=== PATIENT | male | born 1975 | race Caucasian/White ===

== ENCOUNTER 2020-03-10 16:27 | Inpatient (IN) | payer OTHER ==
[~2020-03-10] VITALS: Ht 172.7 cm; Wt 88.3 kg
[~2020-03-10 16:27] MED LIST: ALPR0.5T6 PO; LISI10TA2 PO; PARO20TA3 PO
[2020-03-10 17:06] LABS: BASO # 0.1 x10^3/uL (0.0-0.2); BASO % 1 % (0-3); EOS # 0.3 x10^3/uL (0.0-0.7); EOS % 3 % (0-3); HEMOGLOBIN 13.4 g/dL (13.0-17.5); LYMPH # 1.6 x10^3/uL (1.0-4.8); LYMPH % 14 % (24-48); MEAN CORPUSCULAR HEMOGLOBIN 32 pg (25-35); MEAN CORPUSCULAR HGB CONC 34 g/dL (31-37); MEAN CORPUSCULAR VOLUME 92 fL (79-100); MONO # 0.8 x10^3/uL (0.0-1.1); MONO % 7 % (0-9); NEUT # 8.5 x10^3/uL (1.8-7.7); NEUT % 75 % (31-73); PLATELET COUNT 325 x10^3/uL (140-400); RED BLOOD COUNT 4.22 x10^6/uL (4.30-5.70); RED CELL DISTRIBUTION WIDTH 13.3 % (11.5-14.5); WHITE BLOOD COUNT 11.3 x10^3/uL (4.0-11.0)
--- NOTE | 2020-03-10 17:13 | PHYS DOC ---
Past Medical History Past Medical History: Anxiety, Depression, Hypertension (ROBERTO CHAVEZ APRN) Past Surgical History: Other Additional Past Surgical Histo: wisdom teeth extraction (ROBERTO CHAVEZ APRN) Smoking Status: Current Every Day Smoker Alcohol Use: Heavy Drug Use: None (ROBERTO CHAVEZ APRN) General Adult EDM: Chief Complaint: SHORTNESS OF BREATH HPI: HPI: Patient is a 44 year old male who presents to the emergency department with complaints of shortness of breath, dry cough, fatigue, and labored breathing th at began yesterday. He denies any fever, abdominal pain, nausea, vomiting, diarrhea, chest pain, palpitations, sore throat, or headache. He denies any known exposure to COVID-19, however patient reports that there have been people who have tested positive for COVID where he works. Patient states that he always wears a mask and gloves while he is at work. He states that his chest hurts with coughing only. Patient reports pain in his upper back that is sharp and he currently rates that pain a 7 out of 10 on the pain scale, he denies radiation of the pain. He denies any alleviating factors. (ROBERTO CHAVEZ APRN) Review of Systems: Review of Systems: Constitutional: Denies fever or chills, reports fatigue. [] Eyes: Denies change in visual acuity. [] HENT: Denies nasal congestion or sore throat. [] Respiratory: See HPI Cardiovascular: Denies chest pain or edema. [] GI: Denies abdominal pain, nausea, vomiting, or diarrhea. [] Musculoskeletal: Denies joint pain; see HPI Integument: Denies rash. [] Neurologic: Denies headache, focal weakness or sensory changes. [] Lymphatic: Denies swollen glands. [] Psychiatric: Denies depression or anxiety. [] (ROBERTO CHAVEZ APRN) Heart Score: Risk Factors: Risk Factors: DM, Current or recent (<one month) smoker, HTN, HLP, family history of CAD, obesity. Risk Scores: Score 0 - 3: 2.5% MACE over next 6 weeks - Discharge Home Score 4 - 6: 20.3% MACE over next 6 weeks - Admit for Clinical Observation Score 7 - 10: 72.7% MACE over next 6 weeks - Early Invasive Strategies (ROBERTO CHAVEZ APRN) Allergies: Allergies: Allergies Coded Allergies Type Severity Reaction Last Updated Verified No Known Drug Allergies 10/10/14 No (ROBERTO CHAVEZ APRN) Physical Exam: PE: Constitutional: Well developed, well nourished, no acute distress, ill appearance. [] HENT: Normocephalic, atraumatic, bilateral external ears normal, oropharynx moist, no oral exudates, nose normal. [] Eyes: PERRLA, EOMI, conjunctiva normal, no discharge. [] Neck: Normal range of motion, no stridor. [] Cardiovascular:Heart rate regular rhythm Lungs & Thorax: Bilateral breath sounds expiratory wheezes throughout, labored breathing with abdominal retractions present, patient speaking 2-3 words at a time. Abdomen: soft, no tenderness Skin: Warm, dry, no erythema, no rash. [] Back: No tenderness Extremities: No cyanosis, no clubbing, ROM intact, no edema. [] Neurologic: Alert and oriented X 3, no focal deficits noted. [] Psychologic: Affect normal, judgement normal, mood normal. [] (ROBERTO CHAVEZ SENIOR SCIENTIST) Current Patient Data: Labs: Laboratory Tests Test 03/10/20 16:40 White Blood Count 11.3 x10^3/uL (4.0-11.0) H Red Blood Count 4.22 x10^6/uL (4.30-5.70) L Hemoglobin 13.4 g/dL (13.0-17.5) Hematocrit 39.0 % (39.0-53.0) Mean Corpuscular Volume 92 fL (79-100) Mean Corpuscular Hemoglobin 32 pg (25-35) Mean Corpuscular Hemoglobin Concent 34 g/dL (31-37) Red Cell Distribution Width 13.3 % (11.5-14.5) Platelet Count 325 x10^3/uL (140-400) Neutrophils (%) (Auto) 75 % (31-73) H Lymphocytes (%) (Auto) 14 % (24-48) L Monocytes (%) (Auto) 7 % (0-9) Eosinophils (%) (Auto) 3 % (0-3) Basophils (%) (Auto) 1 % (0-3) Neutrophils # (Auto) 8.5 x10^3/uL (1.8-7.7) H Lymphocytes # (Auto) 1.6 x10^3/uL (1.0-4.8) Monocytes # (Auto) 0.8 x10^3/uL (0.0-1.1) Eosinophils # (Auto) 0.3 x10^3/uL (0.0-0.7) Basophils # (Auto) 0.1 x10^3/uL (0.0-0.2) Laboratory Tests 03/10/20 16:40 Vital Signs: Vital Signs Date Time Temp Pulse Resp B/P (MAP) Pulse Ox O2 Delivery O2 Flow Rate FiO2 03/10/20 16:35 98.9 104 26 148/85 (106) 86 Room Air 98.9 (ROBERTO CHAVEZ APRN) EKG: EK-sinus rhythm, rate 93, reciprocal changes in leads II and II, no STEMI [] (ROBERTO CHAVEZ APRN) Radiology/Procedures: Radiology/Procedures: PROCEDURE: CHEST AP ONLY EXAM: Chest, single view. HISTORY: Nausea and vomiting. COMPARISON: None. FINDINGS: A frontal view of the chest is obtained. There is no infiltrate, pleural effusion or pneumothorax. The heart is normal in size. IMPRESSION: No acute pulmonary finding. Electronically signed by: Elva Price MD (03/10/2020 5:31 PM) [facility] PROCEDURE: CT ANGIOGRAPHY CHEST Examination: CT angiography chest HISTORY: History of shortness of breath, elevated d-dimer COMPARISON: None available Technique: Axial CT angiographic images were performed with IV contrast. Coronal and sagittal 3-D MIP reformats are performed Exposure: One or more of the following individualized dose reduction techniques were utilized for this examination: 1. Automated exposure control 2. Adjustment of the mA and/or kV according to patient size 3. Use of iterative reconstruction technique FINDINGS: The visualized thyroid gland grossly appears unremarkable. The central airways are patent. No evidence for significant mediastinal lymphadenopathy is identified. The caliber of the aorta grossly appears unremarkable. There is no evidence of filling defect identified in the main pulmonary arterial trunk and right and left main pulmonary arteries and the visualized lobar, segmental branches of the pulmonary arteries. Patchy groundglass airspace opacities identified in the right upper lobe, right middle lobe and left lower lobe of the lung. Mild prominent bilateral hilar lymph nodes the largest measuring 1.5 cm. The visualized liver, spleen, adrenals grossly appears unremarkable Mild degenerative changes thoracic spine IMPRESSION: 1. No evidence of pulmonary embolism. 2. Patchy groundglass airspace opacities identified in the right upper lobe, right middle lobe, left lower lobe of the lung could be atypical or viral pneumonia or atelectasis or infiltrates. Correlate clinically and with lab values. 3. Mild bilateral hilar lymphadenopathy. Electronically signed by: Shane Zimmerman MD (03/10/2020 6:30 PM) [id number] [] (ROBERTO CHAVEZ SENIOR SCIENTIST) Course & Med Decision Making: Course & Med Decision Making Pertinent Labs and Imaging studies reviewed. (See chart for details) 1709-spoke with Dr. Uribe about the reciprocal changes on patient's EKG. 1752-spoke with Dr. Mir who is the admitting physician, and care was assumed following discussion of patient. Will admit pt to CVC for PUI and hypoxia. Pt was given 125 mg of solumedrol and 2 puffs of Albuterol MDI in the ER and reports feeling better after these medications. 1856 Patient's vital signs stable. Patient remains afebrile, appears nontoxic, respirations even and unlabored, retractions after . Patient will be admitted to the CVC floor. Patient's case and plan of care also discussed with Dr. Melchor [] COVID-19 CRITERIA: The patient was evaluated during the global COVID-19 pandemic, and that diagnosis was suspected/considered upon their initial presentation. Their evaluation, treatment and testing was consistent with current guidelines for patients who present with complaints or symptoms that may be related to COVID-19. (ROBERTO CHAVEZ SENIOR SCIENTIST) Course & Med Decision Making I have reviewed the PA/BUTCHER SCULLION's note and Plan of Care. I was available for consultation as needed during the patient's visit in the emergency department. I agree with the clinical impression, plans and disposition. (MANUELA MELCHOR MD) Dragon Disclaimer: Dragon Disclaimer: This electronic medical record was generated, in whole or in part, using a voice recognition dictation system. (ROBERTO CHAVEZ APRN) Departure Departure Impression: Primary Impression: Person under investigation for COVID-19 Additional Impression: Hypoxia Disposition: ADMITTED INPATIENT Admitting Physician: MARIA LUISA Navas) (ROBERTO CHAVEZ APRN) Condition: STABLE Referrals: JOSE DOLAN (PCP) Justicifation of Admission Dx: Justifications for Admission: Justification of Admission Dx: Yes Comminuty Aquired Pneumonia: Hypoxemia (ROBERTO CHAVEZ APRN) COVID-19 Assessment: COVID-19 Patient Risks: Age 65 or older: No Sign of co-morbidity: No Exp to person + for COVID: No Exp to PUI: No Travel from affected area: No Lower respiratory symptoms: Yes Fever: No Other: No (ROBERTO CHAVEZ APRN) PPE Use: Full PPE with N95 mask or PAPR: Yes (ROBERTO CHAVEZ APRN) ROBERTO CHAVEZ APRN Mar 10, 2020 17:13 MANUELA MELCHOR MD Mar 10, 2020 20:26
[2020-03-10 17:18] LABS: CALCIUM 8.7 mg/dL (8.5-10.1); CREATININE 1.1 mg/dL (0.7-1.3); GFR 73.4; POTASSIUM 3.8 mmol/L (3.5-5.1)
--- NOTE | 2020-03-10 17:34 | RAD ---
EXAM: Chest, single view. HISTORY: Nausea and vomiting. COMPARISON: None. FINDINGS: A frontal view of the chest is obtained. There is no infiltrate, pleural effusion or pneumothorax. The heart is normal in size. IMPRESSION: No acute pulmonary finding. Electronically signed by: Elva Price MD (03/10/2020 5:31 PM) [facility]
[2020-03-10 17:45] LABS: ALBUMIN 3.7 g/dL (3.4-5.0); ALBUMIN/GLOBULIN RATIO 0.9 (1.0-1.7); C-REACTIVE PROTEIN 17.4 mg/L (0-3.3); MAGNESIUM 1.7 mg/dL (1.8-2.4); TOTAL BILIRUBIN 0.5 mg/dL (0.2-1.0); TOTAL PROTEIN 7.6 g/dL (6.4-8.2)
[2020-03-10 17:53] LABS: BILIRUBIN,URINE NEGATIVE (NEG); CLARITY,URINE CLEAR; COLOR,URINE YELLOW; NITRITE,URINE NEGATIVE (NEG); PROTEIN,URINE NEGATIVE (NEG-TRACE); UROBILINOGEN,URINE 0.2 mg/dL (0.2 mg/dL)
[2020-03-10] MEDS ORDERED: methylPREDNISolone SOD SUCC PF 125 MG/2 ML VIAL. IV ONE (18:00)
[2020-03-10] MEDS ORDERED: ALBUTEROL SULFATE 8GM INHALER. INH PRN (18:00)
[2020-03-10 18:03] LABS: BACTERIA,URINE 0 /HPF (0-FEW); RBC,URINE 0 /HPF (0-2); WBC,URINE 0 /HPF (0-4)
[2020-03-10] MEDS ORDERED: IOHEXOL 350 MG/ML 100 ML VIAL. IV ONE ×2 (18:15→18:30)
[2020-03-10] MEDS ORDERED: CONTRAST GIVEN. MC PRN (18:30)
--- NOTE | 2020-03-10 18:33 | RAD ---
Examination: CT angiography chest HISTORY: History of shortness of breath, elevated d-dimer COMPARISON: None available Technique: Axial CT angiographic images were performed with IV contrast. Coronal and sagittal 3-D MIP reformats are performed Exposure: One or more of the following individualized dose reduction techniques were utilized for this examination: 1. Automated exposure control 2. Adjustment of the mA and/or kV according to patient size 3. Use of iterative reconstruction technique FINDINGS: The visualized thyroid gland grossly appears unremarkable. The central airways are patent. No evidence for significant mediastinal lymphadenopathy is identified. The caliber of the aorta grossly appears unremarkable. There is no evidence of filling defect identified in the main pulmonary arterial trunk and right and left main pulmonary arteries and the visualized lobar, segmental branches of the pulmonary arteries. Patchy groundglass airspace opacities identified in the right upper lobe, right middle lobe and left lower lobe of the lung. Mild prominent bilateral hilar lymph nodes the largest measuring 1.5 cm. The visualized liver, spleen, adrenals grossly appears unremarkable Mild degenerative changes thoracic spine IMPRESSION: 1. No evidence of pulmonary embolism. 2. Patchy groundglass airspace opacities identified in the right upper lobe, right middle lobe, left lower lobe of the lung could be atypical or viral pneumonia or atelectasis or infiltrates. Correlate clinically and with lab values. 3. Mild bilateral hilar lymphadenopathy. Electronically signed by: Shane Zimmerman MD (03/10/2020 6:30 PM) [id number]
[2020-03-10] MEDS ORDERED: diphenhydrAMINE 50 MG/ML VIAL IVP PRN (18:45)
[2020-03-10] MEDS ORDERED: ONDANSETRON PF 4 MG/2 ML VIAL. IV PRN (18:45)
[2020-03-10] MEDS ORDERED: guaiFENesin ORAL 200 MG/10 ML LIQUID. PO PRN (18:45)
[2020-03-10] MEDS ORDERED: PIPERACILLIN/TAZOBACTAM 3.375 GM in IV NORMAL SALINE 50ML 50 ML IV ONE (18:45)
[2020-03-10] MEDS ORDERED: ALBUTEROL SULFATE 2.5 MG/3 ML NEBU. NEB PRN (18:45)
[2020-03-10] MEDS ORDERED: cloNIDine HCL 0.1 MG TABLET PO PRN (18:45)
[2020-03-10] MEDS ORDERED: ACETAMINOPHEN 325 MG TABLET. PO PRN (18:45)
[2020-03-10] MEDS ORDERED: ENOXAPARIN 40 MG/0.4 ML SYRINGE. SQ SCH (19:00)
[2020-03-10] MEDS: NICOTINE 21MG PATCH. TD SCH (20:42)
[2020-03-10] MEDS: THIAMINE INJ 200 MG in IV DEXTROSE 5% 50 ML IV SCH (20:43)
[2020-03-10] MEDS: ASCORBIC ACID 500 MG TABLET PO SCH (20:43)
[2020-03-10] MEDS: ZINC SULFATE 220 MG CAPSULE. PO SCH (20:43)
[2020-03-10 21:38] VITALS: BP 128/67
[2020-03-10] MEDS ORDERED: MAGNESIUM SULFATE 2GM 50 ML IV ONE (22:00)
--- NOTE | 2020-03-10 22:00 | PDOC1 ---
History and Physical Date of Admission Date of Admission 03/10/2020 Identification/Chief Complaint Chief Complaint I cannot breathe Source Source: Chart review, Patient History of Present Illness History of Present Illness Patient is a 44-year-old gentleman with no significant past medical history except for essential hypertension and tobacco abuse who was in his usual state of health until apparently yesterday he started feeling quite short of breath. He has been having dry cough and fatigue for about 5 days prior to his visit to the emergency department he denied any fever no sick contacts he denied any sneezing upper respiratory tract infection symptoms no abdominal pain no nausea vomiting no change in his sense of smell or taste. The patient was unable to climb a flight of stairs at home with about 5 steps and due to the progressive nature of his symptoms he decided to consult the emergency department. He certainly looks quite labored and is able to finish sentences fortunately. He is requiring 3 L of oxygen and given the laboratory findings and chest imaging patient is highly suspicious for coronavirus infection. We have been asked to admit the patient for further evaluation and treatment. Plan of care has been explained in detail all of his concerns were addressed to the best of my abilities. Patient denies abdominal pain nausea vomiting no urinary symptoms no CVA tenderness elicited on physical exam no peripheral edema was noted. Patient has not taking anything [id number] to alleviate his symptoms. Past Medical History Cardiovascular: HTN Psych: Anxiety, Depression Past Surgical History Past Surgical History: No pertinent history Family History Family History: No Significant Social History Smoke: # pack years (10) ALCOHOL: occassional Drugs: None Current Problem List Problem List Problems Medical Problems: (1) Hypoxia Status: Acute (2) Person under investigation for COVID-19 Status: Acute Current Medications Current Medications Current Medications Medications (Trade) Dose Ordered Sig/Prabhjot Start Time Stop Time Status Last Admin Dose Admin Acetaminophen (Tylenol) 650 mg PRN Q4HRS PRN 03/10/20 18:45 Albuterol Sulfate (Ventolin Hfa) 2 puff PRN Q3HRS PRN 03/10/20 18:00 Albuterol Sulfate (Ventolin Neb Soln) 2.5 mg PRN Q4HRS PRN 03/10/20 18:45 Ascorbic Acid (Vitamin C) 500 mg Q6HRS 03/10/20 19:15 03/10/20 20:43 500 MG Atorvastatin Calcium (Lipitor) 20 mg QHS 03/10/20 21:00 Azithromycin (Zithromax) 500 mg DAILY 03/11/20 09:00 03/13/20 09:01 Clonidine HCl (Catapres) 0.1 mg PRN Q6HRS PRN 03/10/20 18:45 Diphenhydramine HCl (Benadryl) 25 mg PRN Q4HRS PRN 03/10/20 18:45 Enoxaparin Sodium (Lovenox 40mg Syringe) 40 mg Q12H 03/10/20 20:00 Famotidine (Pepcid) 20 mg BID 03/10/20 21:00 Guaifenesin (Robitussin) 200 mg PRN Q4HRS PRN 03/10/20 18:45 Info (CONTRAST GIVEN -- Rx MONITORING) 1 each PRN DAILY PRN 03/10/20 18:30 03/12/20 18:29 Iohexol (Omnipaque 350 Mg/ml) 100 ml 1X ONCE 03/10/20 18:30 03/10/20 18:31 DC 03/10/20 18:20 100 ML Lorazepam (Ativan) 0.5 mg PRN Q4HRS PRN 03/10/20 18:45 Methylprednisolone Sodium Succinate (SOLU-Medrol 40MG VIAL) 40 mg Q12HR 03/10/20 20:00 Methylprednisolone Sodium Succinate (SOLU-Medrol 125MG VIAL) 125 mg 1X ONCE 03/10/20 18:00 03/10/20 18:01 DC 03/10/20 18:09 125 MG Nicotine (Nicoderm Cq 21mg) 1 patch DAILY 03/10/20 19:15 03/10/20 20:42 1 PATCH Ondansetron HCl (Zofran) 4 mg PRN Q4HRS PRN 03/10/20 18:45 Piperacillin Sod/ Tazobactam Sod 3.375 gm/Sodium Chloride 50 ml @ 100 mls/hr 1X ONCE 03/10/20 18:45 03/10/20 19:15 DC 03/10/20 20:12 100 MLS/HR Thiamine HCl 200 mg/Dextrose 52 ml @ 102 mls/hr Q12HR 03/10/20 21:00 03/10/20 20:43 102 MLS/HR Vitamin D (Vitamin D3) 1,000 unit BID 03/10/20 21:00 Zinc Sulfate (Orazinc) 220 mg DAILY 03/10/20 19:15 03/10/20 20:43 220 MG Zolpidem Tartrate (Ambien) 5 mg PRN QHS PRN 03/10/20 18:45 Allergies Allergies Allergies Coded Allergies Type Severity Reaction Last Updated Verified No Known Drug Allergies 10/10/14 No ROS Review of System CONSTITUTIONAL: No fever or chills EYES: No recent changes SKIN: No rash or itching CARDIOVASCULAR: No chest pain, syncope, palpitations, or edema RESPIRATORY: No SOB or cough GASTROINTESTINAL: No nausea, vomiting or abdominal pain NEUROLOGICAL: No headaches or weakness ENDOCRINE: No cold or heat intolerance GENITOURINARY: No urgency or frequency of urination MUSCULOSKELETAL: No back pain or joint pain LYMPHATICS: No enlarged lymph nodes PSYCHIATRIC: No anxiety or depression Physical Exam Physical Exam GEN.: No apparent distress. Alert and oriented. HEENT: Head is normocephalic, atraumatic NECK: Supple. LUNGS: Clear to auscultation. HEART: RRR, S1, S2 present. Peripheral pulses intact ABDOMEN: Soft, nontender. Positive bowel sounds. EXTREMITIES: Without any cyanosis. NEUROLOGIC: Normal speech, normal tone PSYCHIATRIC: Normal affect, normal mood. SKIN: No ulcerations Vitals Vitals Vital Signs Date Time Temp Pulse Resp B/P (MAP) Pulse Ox O2 Delivery O2 Flow Rate FiO2 03/10/20 20:21 84 22 148/76 (100) 92 Nasal Cannula 2.0 03/10/20 16:35 98.9 98.9 Labs Labs Laboratory Tests Test 03/10/20 16:40 03/10/20 17:40 White Blood Count 11.3 x10^3/uL (4.0-11.0) Red Blood Count 4.22 x10^6/uL (4.30-5.70) Hemoglobin 13.4 g/dL (13.0-17.5) Hematocrit 39.0 % (39.0-53.0) Mean Corpuscular Volume 92 fL (79-100) Mean Corpuscular Hemoglobin 32 pg (25-35) Mean Corpuscular Hemoglobin Concent 34 g/dL (31-37) Red Cell Distribution Width 13.3 % (11.5-14.5) Platelet Count 325 x10^3/uL (140-400) Neutrophils (%) (Auto) 75 % (31-73) Lymphocytes (%) (Auto) 14 % (24-48) Monocytes (%) (Auto) 7 % (0-9) Eosinophils (%) (Auto) 3 % (0-3) Basophils (%) (Auto) 1 % (0-3) Neutrophils # (Auto) 8.5 x10^3/uL (1.8-7.7) Lymphocytes # (Auto) 1.6 x10^3/uL (1.0-4.8) Monocytes # (Auto) 0.8 x10^3/uL (0.0-1.1) Eosinophils # (Auto) 0.3 x10^3/uL (0.0-0.7) Basophils # (Auto) 0.1 x10^3/uL (0.0-0.2) D-Dimer (Alycia) 0.73 ug/mlFEU (0.00-0.50) Sodium Level 134 mmol/L (136-145) Potassium Level 3.8 mmol/L (3.5-5.1) Chloride Level 97 mmol/L (98-107) Carbon Dioxide Level 26 mmol/L (21-32) Anion Gap 11 (6-14) Blood Urea Nitrogen 7 mg/dL (8-26) Creatinine 1.1 mg/dL (0.7-1.3) Estimated GFR (Cockcroft-Gault) 73.4 BUN/Creatinine Ratio 6 (6-20) Glucose Level 122 mg/dL (70-99) Calcium Level 8.7 mg/dL (8.5-10.1) Magnesium Level 1.7 mg/dL (1.8-2.4) Ferritin 240 ng/mL (26-388) Total Bilirubin 0.5 mg/dL (0.2-1.0) Aspartate Amino Transf (AST/SGOT) 39 U/L (15-37) Alanine Aminotransferase (ALT/SGPT) 102 U/L (16-63) Alkaline Phosphatase 104 U/L (46-116) Creatine Kinase 219 U/L (39-308) C-Reactive Protein, Quantitative 17.4 mg/L (0-3.3) Total Protein 7.6 g/dL (6.4-8.2) Albumin 3.7 g/dL (3.4-5.0) Albumin/Globulin Ratio 0.9 (1.0-1.7) Lipase 55 U/L (73-393) Urine Collection Type Unknown Urine Color Yellow Urine Clarity Clear Urine pH 6.0 (<5.0-8.0) Urine Specific Pierpont <=1.005 (1.000-1.030) Urine Protein Negative mg/dL (NEG-TRACE) Urine Glucose (UA) Negative mg/dL (NEG) Urine Ketones (Stick) Negative mg/dL (NEG) Urine Blood Negative (NEG) Urine Nitrite Negative (NEG) Urine Bilirubin Negative (NEG) Urine Urobilinogen Dipstick 0.2 mg/dL (0.2 mg/dL) Urine Leukocyte Esterase Negative (NEG) Urine RBC 0 /HPF (0-2) Urine WBC 0 /HPF (0-4) Urine Bacteria 0 /HPF (0-FEW) Laboratory Tests Test 03/10/20 16:40 03/10/20 17:40 White Blood Count 11.3 x10^3/uL (4.0-11.0) Red Blood Count 4.22 x10^6/uL (4.30-5.70) Hemoglobin 13.4 g/dL (13.0-17.5) Hematocrit 39.0 % (39.0-53.0) Mean Corpuscular Volume 92 fL (79-100) Mean Corpuscular Hemoglobin 32 pg (25-35) Mean Corpuscular Hemoglobin Concent 34 g/dL (31-37) Red Cell Distribution Width 13.3 % (11.5-14.5) Platelet Count 325 x10^3/uL (140-400) Neutrophils (%) (Auto) 75 % (31-73) Lymphocytes (%) (Auto) 14 % (24-48) Monocytes (%) (Auto) 7 % (0-9) Eosinophils (%) (Auto) 3 % (0-3) Basophils (%) (Auto) 1 % (0-3) Neutrophils # (Auto) 8.5 x10^3/uL (1.8-7.7) Lymphocytes # (Auto) 1.6 x10^3/uL (1.0-4.8) Monocytes # (Auto) 0.8 x10^3/uL (0.0-1.1) Eosinophils # (Auto) 0.3 x10^3/uL (0.0-0.7) Basophils # (Auto) 0.1 x10^3/uL (0.0-0.2) D-Dimer (Alycia) 0.73 ug/mlFEU (0.00-0.50) Sodium Level 134 mmol/L (136-145) Potassium Level 3.8 mmol/L (3.5-5.1) Chloride Level 97 mmol/L (98-107) Carbon Dioxide Level 26 mmol/L (21-32) Anion Gap 11 (6-14) Blood Urea Nitrogen 7 mg/dL (8-26) Creatinine 1.1 mg/dL (0.7-1.3) Estimated GFR (Cockcroft-Gault) 73.4 BUN/Creatinine Ratio 6 (6-20) Glucose Level 122 mg/dL (70-99) Calcium Level 8.7 mg/dL (8.5-10.1) Magnesium Level 1.7 mg/dL (1.8-2.4) Ferritin 240 ng/mL (26-388) Total Bilirubin 0.5 mg/dL (0.2-1.0) Aspartate Amino Transf (AST/SGOT) 39 U/L (15-37) Alanine Aminotransferase (ALT/SGPT) 102 U/L (16-63) Alkaline Phosphatase 104 U/L (46-116) Creatine Kinase 219 U/L (39-308) C-Reactive Protein, Quantitative 17.4 mg/L (0-3.3) Total Protein 7.6 g/dL (6.4-8.2) Albumin 3.7 g/dL (3.4-5.0) Albumin/Globulin Ratio 0.9 (1.0-1.7) Lipase 55 U/L (73-393) Urine Collection Type Unknown Urine Color Yellow Urine Clarity Clear Urine pH 6.0 (<5.0-8.0) Urine Specific Pierpont <=1.005 (1.000-1.030) Urine Protein Negative mg/dL (NEG-TRACE) Urine Glucose (UA) Negative mg/dL (NEG) Urine Ketones (Stick) Negative mg/dL (NEG) Urine Blood Negative (NEG) Urine Nitrite Negative (NEG) Urine Bilirubin Negative (NEG) Urine Urobilinogen Dipstick 0.2 mg/dL (0.2 mg/dL) Urine Leukocyte Esterase Negative (NEG) Urine RBC 0 /HPF (0-2) Urine WBC 0 /HPF (0-4) Urine Bacteria 0 /HPF (0-FEW) VTE Prophylaxis Ordered VTE Prophylaxis Devices: No VTE Pharmacological Prophylaxi: Yes Assessment/Plan Assessment/Plan Acute hypoxemic respiratory failure Person under investigation for COVID-19 Tobacco abuse, counseling has been done COPD Essential hypertension Leukocytosis Hyponatremia Hypomagnesemia Plan; We will start math+ protocol We will try to maintain magnesium between 2 and 2.4 Respiratory support with oxygen Encourage prone position We will follow results of COVID-19 precaution DVT prophylaxis with Lovenox Further recommendations based on the clinical course RACHELLE RODRIGUEZ MD Mar 10, 2020 22:00
[2020-03-11] MEDS: CHOLECALCIFEROL (VITAMIN D3) 1,000 UNIT TABLET PO SCH ×3 (00:28→21:30)
[2020-03-11] MEDS: ATORVASTATIN CALCIUM 20 MG TABLET PO SCH ×2 (00:28→21:30)
[2020-03-11] MEDS: methylPREDNISolone SOD SUCC PF 40 MG/ML VIAL. IV SCH ×3 (00:28→21:29)
[2020-03-11] MEDS: LORazepam 0.5 MG TABLET PO PRN ×2 (00:28→17:40)
[2020-03-11] MEDS: ASCORBIC ACID 500 MG TABLET PO SCH ×4 (00:28→17:35)
[2020-03-11] MEDS: ENOXAPARIN 40 MG/0.4 ML SYRINGE. SQ SCH ×3 (00:29→21:29)
[2020-03-11] MEDS: FAMOTIDINE 20 MG TABLET. PO SCH ×3 (00:29→21:30)
[2020-03-11 03:37] VITALS: BP 162/91
[2020-03-11 07:00] VITALS: BP 145/75
[2020-03-11 07:57] LABS: BASO % 0 % (0-3); EOS % 0 % (0-3); HEMATOCRIT 40.7 % (39.0-53.0); HEMOGLOBIN 13.8 g/dL (13.0-17.5); LYMPH # 0.6 x10^3/uL (1.0-4.8); LYMPH % 15 % (24-48); MEAN CORPUSCULAR HEMOGLOBIN 32 pg (25-35); MEAN CORPUSCULAR HGB CONC 34 g/dL (31-37); MEAN CORPUSCULAR VOLUME 93 fL (79-100); MONO # 0.1 x10^3/uL (0.0-1.1); MONO % 2 % (0-9); NEUT # 3.7 x10^3/uL (1.8-7.7); NEUT % 83 % (31-73); PLATELET COUNT 325 x10^3/uL (140-400); RED BLOOD COUNT 4.37 x10^6/uL (4.30-5.70); RED CELL DISTRIBUTION WIDTH 13.7 % (11.5-14.5); WHITE BLOOD COUNT 4.4 x10^3/uL (4.0-11.0)
--- NOTE | 2020-03-11 08:01 | EKG ---
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
[2020-03-11 08:12] LABS: CALCIUM 8.8 mg/dL (8.5-10.1); CREATININE 1.1 mg/dL (0.7-1.3); GFR 73.4; POTASSIUM 4.1 mmol/L (3.5-5.1)
[2020-03-11] MEDS: NICOTINE 21MG PATCH. TD SCH (09:07)
[2020-03-11] MEDS: ZINC SULFATE 220 MG CAPSULE. PO SCH (09:08)
[2020-03-11] MEDS: AZITHROMYCIN 250 MG TABLET. PO SCH (09:08)
[2020-03-11] MEDS: THIAMINE INJ 200 MG in IV DEXTROSE 5% 50 ML IV SCH ×2 (09:09→21:30)
[2020-03-11 11:00] VITALS: BP 130/65
[2020-03-11 15:00] VITALS: BP 154/67
--- NOTE | 2020-03-11 15:40 | PDOC ---
[facility] PROGRESS NOTE Date of Service DOS: DATE: 03/11/20 TIME: 15:37 Chief Complaint Chief Complaint Acute hypoxemic respiratory failure Person under investigation for COVID-19 Tobacco abuse, counseling has been done COPD Essential hypertension Leukocytosis Hyponatremia Hypomagnesemia Plan; We will start math+ protocol We will try to maintain magnesium between 2 and 2.4 Respiratory support with oxygen Encourage prone position We will follow results of COVID-19 precaution DVT prophylaxis with Lovenox Further recommendations based on the clinical course History of Present Illness History of Present Illness 44-year-old gentleman with no significant past medical history except for essential hypertension and tobacco abuse who was in his usual state of health until apparently yesterday he started feeling quite short of breath. He has been having dry cough and fatigue for about 5 days prior to his visit to the emergency department he denied any fever no sick contacts he denied any sneezing upper respiratory tract infection symptoms no abdominal pain no nausea vomiting no change in his sense of smell or taste. The patient was unable to climb a flight of stairs at home with about 5 steps and due to the progressive nature of his symptoms he decided to consult the emergency department. He certainly looks quite labored and is able to finish sentences fortunately. He is requiring 3 L of oxygen and given the laboratory findings and chest imaging patient is highly suspicious for coronavirus infection. We have been asked to admit the patient for further evaluation and treatment. Plan of care has been explained in detail all of his concerns were addressed to the best of my abilities. 03/11/2020 No acute event events overnight. Patient continues to saturate 93% on 3 L nasal cannula. He is currently sitting prone position but does not have any accessory muscle breathing. Vitals/I&O Vitals/I&O: Vital Signs Date Time Temp Pulse Resp B/P (MAP) Pulse Ox O2 Delivery O2 Flow Rate FiO2 03/11/20 15:00 98.0 98 20 154/67 (96) 93 Nasal Cannula 3.0 98.0 Physical Exam Physical Exam: GEN: No apparent distress. Alert and oriented HEENT: Normal cephalic, atraumatic, external auditory canals are patent NECK: Supple, no JVD, no thyromegaly was noted LUNGS: Bilateral minimal wheezing and crackles HEART: RRR, S1, S2 present. Peripheral pulses intact, no obvious murmurs noted ABDOMEN: Soft, nontender. Positive bowel sounds, no organomegaly, normal bowel sounds EXTREMITIES: Without clubbing, cyanosis, or edema. Pedal pulses intact. Negative Homans sign Labs Labs: Laboratory Tests Test 03/10/20 16:40 03/10/20 17:40 03/11/20 06:39 White Blood Count 11.3 x10^3/uL (4.0-11.0) 4.4 x10^3/uL (4.0-11.0) Red Blood Count 4.22 x10^6/uL (4.30-5.70) 4.37 x10^6/uL (4.30-5.70) Hemoglobin 13.4 g/dL (13.0-17.5) 13.8 g/dL (13.0-17.5) Hematocrit 39.0 % (39.0-53.0) 40.7 % (39.0-53.0) Mean Corpuscular Volume 92 fL (79-100) 93 fL (79-100) Mean Corpuscular Hemoglobin 32 pg (25-35) 32 pg (25-35) Mean Corpuscular Hemoglobin Concent 34 g/dL (31-37) 34 g/dL (31-37) Red Cell Distribution Width 13.3 % (11.5-14.5) 13.7 % (11.5-14.5) Platelet Count 325 x10^3/uL (140-400) 325 x10^3/uL (140-400) Neutrophils (%) (Auto) 75 % (31-73) 83 % (31-73) Lymphocytes (%) (Auto) 14 % (24-48) 15 % (24-48) Monocytes (%) (Auto) 7 % (0-9) 2 % (0-9) Eosinophils (%) (Auto) 3 % (0-3) 0 % (0-3) Basophils (%) (Auto) 1 % (0-3) 0 % (0-3) Neutrophils # (Auto) 8.5 x10^3/uL (1.8-7.7) 3.7 x10^3/uL (1.8-7.7) Lymphocytes # (Auto) 1.6 x10^3/uL (1.0-4.8) 0.6 x10^3/uL (1.0-4.8) Monocytes # (Auto) 0.8 x10^3/uL (0.0-1.1) 0.1 x10^3/uL (0.0-1.1) Eosinophils # (Auto) 0.3 x10^3/uL (0.0-0.7) 0.0 x10^3/uL (0.0-0.7) Basophils # (Auto) 0.1 x10^3/uL (0.0-0.2) 0.0 x10^3/uL (0.0-0.2) D-Dimer (Alycia) 0.73 ug/mlFEU (0.00-0.50) Sodium Level 134 mmol/L (136-145) 136 mmol/L (136-145) Potassium Level 3.8 mmol/L (3.5-5.1) 4.1 mmol/L (3.5-5.1) Chloride Level 97 mmol/L (98-107) 98 mmol/L (98-107) Carbon Dioxide Level 26 mmol/L (21-32) 27 mmol/L (21-32) Anion Gap 11 (6-14) 11 (6-14) Blood Urea Nitrogen 7 mg/dL (8-26) 9 mg/dL (8-26) Creatinine 1.1 mg/dL (0.7-1.3) 1.1 mg/dL (0.7-1.3) Estimated GFR (Cockcroft-Gault) 73.4 73.4 BUN/Creatinine Ratio 6 (6-20) Glucose Level 122 mg/dL (70-99) 161 mg/dL (70-99) Calcium Level 8.7 mg/dL (8.5-10.1) 8.8 mg/dL (8.5-10.1) Magnesium Level 1.7 mg/dL (1.8-2.4) Ferritin 240 ng/mL (26-388) Total Bilirubin 0.5 mg/dL (0.2-1.0) Aspartate Amino Transf (AST/SGOT) 39 U/L (15-37) Alanine Aminotransferase (ALT/SGPT) 102 U/L (16-63) Alkaline Phosphatase 104 U/L (46-116) Creatine Kinase 219 U/L (39-308) C-Reactive Protein, Quantitative 17.4 mg/L (0-3.3) Total Protein 7.6 g/dL (6.4-8.2) Albumin 3.7 g/dL (3.4-5.0) Albumin/Globulin Ratio 0.9 (1.0-1.7) Lipase 55 U/L (73-393) Urine Collection Type Unknown Urine Color Yellow Urine Clarity Clear Urine pH 6.0 (<5.0-8.0) Urine Specific [place] <=1.005 (1.000-1.030) Urine Protein Negative mg/dL (NEG-TRACE) Urine Glucose (UA) Negative mg/dL (NEG) Urine Ketones (Stick) Negative mg/dL (NEG) Urine Blood Negative (NEG) Urine Nitrite Negative (NEG) Urine Bilirubin Negative (NEG) Urine Urobilinogen Dipstick 0.2 mg/dL (0.2 mg/dL) Urine Leukocyte Esterase Negative (NEG) Urine RBC 0 /HPF (0-2) Urine WBC 0 /HPF (0-4) Urine Bacteria 0 /HPF (0-FEW) Assessment and Plan Assessmemt and Plan Problems Medical Problems: (1) Hypoxia Status: Acute (2) Person under investigation for COVID-19 Status: Acute Comment Review of Relevant I have reviewed the following items zayda (where applicable) has been applied. Medications: Current Medications Medications (Trade) Dose Ordered Sig/Prabhjot Route PRN Reason Start Time Stop Time Status Last Admin Dose Admin Methylprednisolone Sodium Succinate (SOLU-Medrol 125MG VIAL) 125 mg 1X ONCE IV 03/10/20 18:00 03/10/20 18:01 DC 03/10/20 18:09 Albuterol Sulfate (Ventolin Hfa) 2 puff PRN Q3HRS PRN INH SHORTNESS OF BREATH 03/10/20 18:00 03/11/20 00:24 Iohexol (Omnipaque 350 Mg/ml) 100 ml 1X ONCE IV 03/10/20 18:30 03/10/20 18:31 DC 03/10/20 18:20 Acetaminophen (Tylenol) 650 mg PRN Q4HRS PRN PO TEMP OVER 100.4F OR MILD PAIN 03/10/20 18:45 03/11/20 12:42 Guaifenesin (Robitussin) 200 mg PRN Q4HRS PRN PO COUGH 03/10/20 18:45 03/11/20 00:29 Lorazepam (Ativan) 0.5 mg PRN Q4HRS PRN PO ANXIETY / AGITATION 03/10/20 18:45 03/11/20 00:28 Azithromycin (Zithromax) 500 mg DAILY PO 03/11/20 09:00 03/13/20 09:01 03/11/20 09:08 Piperacillin Sod/ Tazobactam Sod 3.375 gm/Sodium Chloride 50 ml @ 100 mls/hr 1X ONCE IV 03/10/20 18:45 03/10/20 19:15 DC 03/10/20 20:12 Methylprednisolone Sodium Succinate (SOLU-Medrol 40MG VIAL) 40 mg Q12HR IV 03/10/20 20:00 03/11/20 09:07 Ascorbic Acid (Vitamin C) 500 mg Q6HRS PO 03/10/20 19:15 03/11/20 12:23 Zinc Sulfate (Orazinc) 220 mg DAILY PO 03/10/20 19:15 03/11/20 09:08 Vitamin D (Vitamin D3) 1,000 unit BID PO 03/10/20 21:00 03/11/20 09:08 Nicotine (Nicoderm Cq 21mg) 1 patch DAILY TD 03/10/20 19:15 03/11/20 09:07 Famotidine (Pepcid) 20 mg BID PO 03/10/20 21:00 03/11/20 09:08 Atorvastatin Calcium (Lipitor) 20 mg QHS PO 03/10/20 21:00 03/11/20 00:28 Enoxaparin Sodium (Lovenox 40mg Syringe) 40 mg Q12H SQ 03/10/20 20:00 03/11/20 09:08 Thiamine HCl 200 mg/Dextrose 52 ml @ 102 mls/hr Q12HR IV 03/10/20 21:00 03/11/20 09:09 Magnesium Sulfate 50 ml @ 25 mls/hr 1X ONCE IV 03/10/20 22:00 03/10/20 23:59 DC 03/11/20 00:25 FAMILIA MORRELL MD Mar 11, 2020 15:40
--- NOTE | 2020-03-11 17:58 | NUR ---
SW following. Spoke with RN and reviewed chart. Pt from home. Pt currently on 3 02. Pt COVID pending. No PT/OT needs per RN.
[2020-03-11 19:00] VITALS: BP 154/81
[2020-03-11] MEDS: ZOLPIDEM 5 MG TABLET. PO PRN (21:30)
[2020-03-11] MEDS: KETOROLAC 30 MG/ML VIAL. IVP PRN (21:30)
[2020-03-11 23:00] VITALS: BP 155/73
[2020-03-12] MEDS: ASCORBIC ACID 500 MG TABLET PO SCH ×4 (00:42→16:55)
[2020-03-12 03:00] VITALS: BP 130/73
[2020-03-12] MEDS: LORazepam 0.5 MG TABLET PO PRN ×3 (06:15→17:04)
[2020-03-12 07:12] VITALS: BP 136/80
[2020-03-12] MEDS: ZINC SULFATE 220 MG CAPSULE. PO SCH (09:02)
[2020-03-12] MEDS: AZITHROMYCIN 250 MG TABLET. PO SCH (09:02)
[2020-03-12] MEDS: CHOLECALCIFEROL (VITAMIN D3) 1,000 UNIT TABLET PO SCH ×2 (09:02→21:26)
[2020-03-12] MEDS: FAMOTIDINE 20 MG TABLET. PO SCH ×2 (09:02→21:26)
[2020-03-12] MEDS: NICOTINE 21MG PATCH. TD SCH (09:02)
[2020-03-12] MEDS: methylPREDNISolone SOD SUCC PF 40 MG/ML VIAL. IV SCH ×2 (09:02→21:26)
[2020-03-12] MEDS: ENOXAPARIN 40 MG/0.4 ML SYRINGE. SQ SCH ×2 (09:03→21:28)
[2020-03-12] MEDS: THIAMINE INJ 200 MG in IV DEXTROSE 5% 50 ML IV SCH (09:03)
[2020-03-12 11:15] VITALS: BP 155/89
--- NOTE | 2020-03-12 11:23 | NUR ---
NOELLE following. Spoke with RN and reviewed chart. Pt from home with . Spoke with pt on the phone who stated no concerns about returning home at discharge. Pt remains on 3l 02 and is COVID pending. Pt does not have home 02. NOELLE following. Addendum: 03/12/20 at 1641 by HEATHER DRAKE Pt's COVID results came back negative. NOELLE waiting on 6 min walk to determine if pt will need 02 on discharge.
[2020-03-12 15:00] VITALS: BP 151/77
--- NOTE | 2020-03-12 15:00 | NUR ---
No need to re-swab for COVID per steven Knight to transfer to med/surg.
--- NOTE | 2020-03-12 15:32 | PDOC ---
[facility] PROGRESS NOTE Date of Service DOS: DATE: 03/12/20 TIME: 15:31 Chief Complaint Chief Complaint Acute hypoxemic respiratory failure Person under investigation for [id number] results Tobacco abuse, counseling has been done COPD Essential hypertension Leukocytosis Hyponatremia Hypomagnesemia Plan; Pending 6-minute walk test for home O2 We will start math+ protocol We will try to maintain magnesium between 2 and 2.4 Respiratory support with oxygen Encourage prone position We will follow results of COVID-19 precaution DVT prophylaxis with Lovenox Further recommendations based on the clinical course History of Present Illness History of Present Illness 44-year-old gentleman with no significant past medical history except for essential hypertension and tobacco abuse who was in his usual state of health until apparently yesterday he started feeling quite short of breath. He has been having dry cough and fatigue for about 5 days prior to his visit to the emergency department he denied any fever no sick contacts he denied any sneezing upper respiratory tract infection symptoms no abdominal pain no nausea vomiting no change in his sense of smell or taste. The patient was unable to climb a flight of stairs at home with about 5 steps and due to the progressive nature of his symptoms he decided to consult the emergency department. He certainly looks quite labored and is able to finish sentences fortunately. He is requiring 3 L of oxygen and given the laboratory findings and chest imaging patient is highly suspicious for coronavirus infection. We have been asked to admit the patient for further evaluation and treatment. Plan of care has been explained in detail all of his concerns were addressed to the best of my abilities. 03/11/2020 No acute event events overnight. Patient continues to saturate 93% on 3 L nasal cannula. He is currently sitting prone position but does not have any accessory muscle breathing. Vitals/I&O Vitals/I&O: Vital Signs Date Time Temp Pulse Resp B/P (MAP) Pulse Ox O2 Delivery O2 Flow Rate FiO2 03/12/20 11:15 97.2 76 18 155/89 (111) 97 Room Air 97.2 03/12/20 08:00 4.0 I & O 03/11/20 03/11/20 03/12/20 15:00 23:00 07:00 Intake Total 440 ml 300 ml Balance 440 ml 300 ml Physical Exam Physical Exam: GEN: No apparent distress. Alert and oriented HEENT: Normal cephalic, atraumatic, external auditory canals are patent NECK: Supple, no JVD, no thyromegaly was noted LUNGS: Bilateral minimal wheezing and crackles HEART: RRR, S1, S2 present. Peripheral pulses intact, no obvious murmurs noted ABDOMEN: Soft, nontender. Positive bowel sounds, no organomegaly, normal bowel sounds EXTREMITIES: Without clubbing, cyanosis, or edema. Pedal pulses intact. Negative Homans sign Assessment and Plan Assessmemt and Plan Problems Medical Problems: (1) Hypoxia Status: Acute (2) Person under investigation for COVID-19 Status: Acute Comment Review of Relevant I have reviewed the following items zayda (where applicable) has been applied. Medications: Current Medications Medications (Trade) Dose Ordered Sig/Prabhjot Route PRN Reason Start Time Stop Time Status Last Admin Dose Admin Ketorolac Tromethamine (Toradol 30mg Vial) 30 mg PRN Q6HRS PRN IVP PAIN 03/11/20 21:00 03/14/20 21:00 03/11/20 21:30 FAMILIA MORRELL MD Mar 12, 2020 15:32
[2020-03-12] MEDS: KETOROLAC 30 MG/ML VIAL. IVP PRN (16:55)
[2020-03-12 19:30] VITALS: BP 171/85
[2020-03-12] MEDS: THIAMINE 100 MG TABLET. PO SCH (21:26)
[2020-03-12] MEDS: ATORVASTATIN CALCIUM 20 MG TABLET PO SCH (21:26)
[2020-03-12] MEDS: ZOLPIDEM 5 MG TABLET. PO PRN (21:26)
[2020-03-13 03:36] VITALS: BP 157/93
[2020-03-13] MEDS: KETOROLAC 30 MG/ML VIAL. IVP PRN (03:44)
[2020-03-13] MEDS: ASCORBIC ACID 500 MG TABLET PO SCH ×3 (06:38→11:37)
[2020-03-13] MEDS: LORazepam 0.5 MG TABLET PO PRN (06:50)
[2020-03-13 07:00] VITALS: BP 149/73
[2020-03-13] MEDS: ENOXAPARIN 40 MG/0.4 ML SYRINGE. SQ SCH (09:29)
[2020-03-13] MEDS: CHOLECALCIFEROL (VITAMIN D3) 1,000 UNIT TABLET PO SCH (09:29)
[2020-03-13] MEDS: FAMOTIDINE 20 MG TABLET. PO SCH (09:29)
[2020-03-13] MEDS: ZINC SULFATE 220 MG CAPSULE. PO SCH (09:29)
[2020-03-13] MEDS: AZITHROMYCIN 250 MG TABLET. PO SCH (09:29)
[2020-03-13] MEDS: THIAMINE 100 MG TABLET. PO SCH (09:29)
[2020-03-13] MEDS: NICOTINE 21MG PATCH. TD SCH (09:31)
[2020-03-13] MEDS: methylPREDNISolone SOD SUCC PF 40 MG/ML VIAL. IV SCH (09:39)
[2020-03-13 11:00] VITALS: BP 169/98
--- NOTE | 2020-03-13 11:09 | DISCH ---
DISCHARGE INSTRUCTIONS Condition on Discharge Condition on Discharge: Stable (Remain quarantined for at least 1 week and retest for COVID if required for returning back to work) Activity After Discharge Activity Instructions for Disc: No restrictions Driving Instructions after Dis: Do not drive today Diet after Discharge Diet after Discharge: Regular Follow-Up Follow up with: PCP within 1 week of discharge FAMILIA MORRELL MD Mar 13, 2020 11:09
--- NOTE | 2020-03-13 13:41 | NUR ---
Pt left unit at 1335 by ambulation via private vehicle with . IV removed with no complications. Discharge instructions and follow-up discussed with pt, verbalized understanding without further questions.
--- NOTE | 2020-03-13 13:49 | NUR ---
SW following. Spoke with RN and reviewed chart. Pt to discharge home today self-care to quarantine per being COVID positive. 6 min walk completed and pt does not requires 02 at discharge. No further SW needs at this time.
--- NOTE | 2020-03-13 16:34 | PDOC3 ---
[facility]-Discharge Summary Date of Admission: Date of Admission: Mar 10, 2020 Date of Discharge: Date of Discharge: Mar 13, 2020 Admission Diagnosis: Admitting Diagnosis: Acute hypoxemic respiratory failure Person under investigation for COVID-19 Tobacco abuse, counseling has been done COPD Essential hypertension Leukocytosis Hyponatremia Hypomagnesemia Discharge Diagnosis: Discharge Diagnosis: Acute hypoxemic respiratory failure COVID negative Tobacco abuse, counseling has been done COPD Essential hypertension Leukocytosis Hyponatremia Hypomagnesemia Hospital Course: Hospital Course: 44-year-old gentleman with no significant past medical history except for essential hypertension and tobacco abuse who was in his usual state of health until apparently yesterday he started feeling quite short of breath. He has been having dry cough and fatigue for about 5 days prior to his visit to the emergency department he denied any fever no sick contacts he denied any sneezing upper respiratory tract infection symptoms no abdominal pain no nausea vomiting no change in his sense of smell or taste. The patient was unable to climb a flight of stairs at home with about 5 steps and due to the progressive nature of his symptoms he decided to consult the emergency department. He certainly looks quite labored and is able to finish sentences fortunately. He is requiring 3 L of oxygen and given the laboratory findings and chest imaging patient is highly suspicious for coronavirus infection. We have been asked to admit the patient for further evaluation and treatment. Plan of care has been explained in detail all of his concerns were addressed to the best of my abilities. Patient was admitted for O2 supplementation. Patient was started on math plus protocol for COVID. Patient's oxygenation and breathing improved by day of discharge. Patient did not require any O2 supplementation and was saturating 98% on room air. Patient was advised to remain quarantined for at least 1 week before returning back to work. Rest of hospital course was uneventful Disposition: Disposition/Orders: D/C to Home Activity: Activity: Resume previous activity Diet: Diet: Regular Medications: Home Meds Reported Medications Lisinopril (LISINOPRIL) 10 Mg Tablet, 1 TAB PO DAILY, #30 TAB 5 Refills 10/10/ Paroxetine Hcl (PAROXETINE HCL) 20 Mg Tablet, 1 TAB PO DAILY, #30 TAB 5 Refills 10/10/14 Alprazolam (ALPRAZOLAM) 0.5 Mg Tablet, 1 TAB PO DAILY, #30 TAB 15 Scheduled Alprazolam (Alprazolam), 1 TAB PO DAILY, (Reported) Lisinopril (Lisinopril), 1 TAB PO DAILY, (Reported) Paroxetine Hcl (Paroxetine Hcl), 1 TAB PO DAILY, (Reported) Total Time: Total Time: Total time spent was 25 minutes in preparing scripts, discharge planning with SWI and RN and preparing this discharge summary Justicifation of Admission Dx: Justifications for Admission: Justification of Admission Dx: Yes Comminuty Aquired Pneumonia: Hypoxemia FAMILIA MORRELL MD Mar 13, 2020 16:34
== END 2020-03-13 13:44 | disposition home or self-care (01) | DRG 189 ==
LOC: ER 16:27 → 6 SOUTH 17:53
PROVIDERS: ADMIT Internal Medicine; ATTEND Internal Medicine
DX: J96.01 Acute respiratory failure with hypoxia (principal); E87.1 Hypo-osmolality and hyponatremia; F41.9 Anxiety disorder, unspecified; F32.9 Major depressive disorder, single episode, unspecified; I10 Essential (primary) hypertension; F17.200 Nicotine dependence, unspecified, uncomplicated; J44.9 Chronic obstructive pulmonary disease, unspecified; D72.829 Elevated white blood cell count, unspecified; E83.42 Hypomagnesemia; Z20.828 Contact with and (suspected) exposure to other viral communicable diseases; Z71.6 Tobacco abuse counseling
CPT/HCPCS: 36415; 71045; 71275; 80048; 80053; 81001; 82550; 82728; 83690; 83735; 85025; 85379; 86140; 93005; 94618; 94760; 96365; 96375; 99285; 99406; J1650; J1885; J2543; J2920; J2930; J3411; J3475; J7060; Q9967; G0378; U0003-CS

== ENCOUNTER 2021-11-17 10:04 | Emergency (ER) | payer OTHER ==
[~2021-11-17] VITALS: Ht 172.7 cm; Wt 72.7 kg
[~2021-11-17 10:04] MED LIST changes: +LISI10TA16 PO; -LISI10TA2 PO
[2021-11-17] MEDS ORDERED: levETIRAcetam 1,000mg PREMIX 100 ML IV ONE (10:15)
[2021-11-17] MEDS ORDERED: MULTIVIT INFUSN,ADULT 4,VIT K 10 ML, THIAMINE INJ 100 MG, FOLIC ACID INJ 1 MG in IV NOR... IV ONE (10:15)
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
[2021-11-17] MEDS ORDERED: IV NORMAL SALINE 1000ML BAG 1,000 ML IV ONE ×3 (10:30→13:30)
[2021-11-17 10:34] LABS: CALCIUM 8.3 mg/dL (8.5-10.1); GFR 81.2
[2021-11-17 10:35] LABS: POTASSIUM 2.9 mmol/L (3.5-5.1)
[2021-11-17 10:49] LABS: BASO # 0.1 x10^3/uL (0.0-0.2); BASO % 1 % (0-3); EOS % 1 % (0-3); HEMATOCRIT 37.8 % (39.0-53.0); LYMPH % 27 % (24-48); MEAN CORPUSCULAR HEMOGLOBIN 34 pg (25-35); MEAN CORPUSCULAR HGB CONC 34 g/dL (31-37); MEAN CORPUSCULAR VOLUME 100 fL (79-100); MONO # 0.3 x10^3/uL (0.0-1.1); MONO % 4 % (0-9); NEUT # 4.8 x10^3/uL (1.8-7.7); NEUT % 67 % (31-73); PLATELET COUNT 253 x10^3/uL (140-400); RED BLOOD COUNT 3.79 x10^6/uL (4.30-5.70); RED CELL DISTRIBUTION WIDTH 15.9 % (11.5-14.5); WHITE BLOOD COUNT 7.2 x10^3/uL (4.0-11.0)
--- NOTE | 2021-11-17 11:25 | RAD ---
EXAM: CT Head without IV contrast CLINICAL HISTORY: Reason: altered mental status, seizure / Spl. Instructions: / History: COMPARISON: None. TECHNIQUE: Routine CT of the head without contrast. PQRS compliance statement - One or more of the following individualized dose reduction techniques wer e utilized for this study: 1. Automated exposure control 2. Adjustment of the mA and/or kV according to patient size 3. Use of iterative reconstruction technique FINDINGS: There is no evidence of hemorrhage, mass or extra-axial fluid collection. Pitts-white differentiation is maintained with no evidence of edema. There is no mass effect or shift of the intracranial structures. The ventricles, basilar cisterns and cortical sulci are normal in size and configuration for the candi ents stated age. The cerebellum and brainstem are unremarkable. The calvarium demonstrates no evidence of fracture or focal lesion. There is normal aeration of the visualized paranasal sinuses and mastoid air cells. The visualized portions of the orbits are normal. IMPRESSION: No evidence for acute intracranial process. Electronically signed by: Delmar Melendez MD (11/17/2021 11:21 AM) [id number]
[2021-11-17] MEDS ORDERED: POTASSIUM CHLORIDE 20 MEQ TABLET.ER. PO ONE (11:45)
[2021-11-17] MEDS ORDERED: LABETALOL 20 MG/4 ML DISP.SYRIN. IVP ONE (14:45)
[2021-11-17 14:49] LABS: BARBITURATES NEG (NEG); BENZODIAZEPINES POS (NEG); CANNABINOIDS NEG (NEG); COCAINE NEG (NEG); METHADONE NEG (NEG); OPIATES NEG (NEG); PHENCYCLIDINE NEG (NEG)
[2021-11-17 14:50] LABS: AMPHETAMINE/METHAMPHETAMINE NEG (NEG)
[2021-11-17] MEDS ORDERED: LEVE500T56 PO (15:34)
[2021-11-17 16:05] VITALS: BP 177/98
--- NOTE | 2021-11-18 19:11 | EKG ---
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
== END 2021-11-17 16:33 | disposition home or self-care (01) ==
LOC: ER 10:04
DX: G40.909 Epilepsy, unspecified, not intractable, without status epilepticus (principal); I10 Essential (primary) hypertension; F17.200 Nicotine dependence, unspecified, uncomplicated
CPT/HCPCS: 36415; 70450; 80048; 80307; 85025; 93005; 96361; 96365; 96368; 96375; 96376; 99285; G0480; J2060; J3411; J3490; J7030